=== PATIENT | female | born 1950 | race Hispanic/Latino ===

== ENCOUNTER 2022-06-03 23:54 | Inpatient (IN) | payer OTHER, MEDICARE ==
[2022-06-04] MEDS ORDERED: Ondansetron PF 4 MG/2 ML Vial ONE ×2 (00:07→15:04)
[2022-06-04] MEDS ORDERED: Morphine 4 MG/ML VIAL ONE (00:07)
[2022-06-04] MEDS ORDERED: Ketorolac Tromethamine 30 MG/ML VIAL ONE (00:07)
[2022-06-04] MEDS ORDERED: Ondansetron ODT 4 MG TAB PO PRN (01:07)
[2022-06-04] MEDS ORDERED: hydrALAZINE 20 MG/ML VIAL SLOW IVP PRN (01:07)
[2022-06-04] MEDS ORDERED: Dextrose 5% in Water 1,000 ML IV PRN (01:07)
[2022-06-04] MEDS ORDERED: Dextrose 50% Abboject 50 ML SYRINGE SLOW IVP PRN (01:07)
[2022-06-04] MEDS ORDERED: Ipratropium/Albuterol 3 ML NEB NEB PRN (01:07)
[2022-06-04] MEDS ORDERED: traMADol HCl 50 MG TAB PO PRN (01:13)
[2022-06-04] MEDS ORDERED: Sodium Chloride 0.9% 1,000 ML IV SCH (01:15)
[2022-06-04 01:43] LABS: #Lymphocytes 0.8 thou/uL (1.20-3.40); #Monocytes 0.5 thou/uL (0.11-0.59); %Basophils 0.5 % (0.0-1.0); %Eosinophils 0.5 % (0.0-10.0); %Lymphocytes 9.3 % (21.0-51.0); %Monocytes 5.8 % (0.0-10.0); %Neutrophils 83.9 % (42.0-75.0); Hemoglobin 11.4 g/dL (12.0-16.0); Mean Corpuscular HGB CONC 33.5 g/dL (32.0-36.0); Mean Corpuscular Hemoglobin 32.5 pg (27.0-31.0); Mean Platelet Volume 8.3 fL (7.4-10.4); Platelet Count 121 10x3/uL (130-400); RBC Distribution Width 11.7 % (11.5-14.5); White Blood Cell (WBC) Count 8.3 10x3/uL (4.8-10.8)
[2022-06-04 02:02] LABS: Phosphorus 2.6 mg/dL (2.3-4.7)
[2022-06-04 02:05] LABS: ALT (SGPT) 11 U/L (8-55); AST (SGOT) 20 U/L (5-34); Alkaline Phosphatase 108 U/L (40-110); Anion Gap 11 mmol/L (10-20); BUN (Urea Nitrogen) 23 mg/dL (9.8-20.1); Bilirubin, Total 0.2 mg/dL (0.2-1.2); Calc. Creatinine Clearance 0 mL/min (70-130); Calcium 8.7 mg/dL (7.8-10.44); Carbon Dioxide 25 mmol/L (23-31); Chloride 108 mmol/L (98-107); Estimated GFR 78; Globulin 2.2 g/dL (2.4-3.5); Glucose 123 mg/dL (83-110); Magnesium 2.3 mg/dL (1.6-2.6); Protein, Total 6.2 g/dL (5.8-8.1); Sodium 140 mmol/L (136-145)
[2022-06-04 03:51] VITALS: BMI 20.5
[2022-06-04] MEDS: Morphine 2 MG/ML VIAL SLOW IVP PRN ×3 (04:29→21:20)
[2022-06-04] MEDS: traMADol HCl 50 MG TAB PO SCH ×4 (06:03→23:59)
[2022-06-04] MEDS: Acetaminophen 500 MG TAB PO SCH ×4 (06:04→23:58)
[2022-06-04] MEDS: Ondansetron PF 4 MG/2 ML Vial IVP PRN ×2 (08:04→21:20)
[2022-06-04] MEDS: Senokot S 8.6-50 MG TAB PO SCH ×2 (08:08→21:21)
[2022-06-04] MEDS: Polyethylene Glycol 3350 17 GM Packet PO SCH (08:08)
[2022-06-04] MEDS ORDERED: Diazepam 5 MG TAB PO PRN (08:25)
[2022-06-04] MEDS ORDERED: Famotidine 20 MG TAB PO SCH (09:00)
[2022-06-04] MEDS: Sertraline 100 MG TAB PO SCH (11:56)
[2022-06-04] MEDS: Erythromycin Base 250 MG TAB PO SCH ×2 (11:56→16:40)
[2022-06-04] MEDS ORDERED: Scopolamine 1.5 mg/72 hour Patch ONE (13:21)
[2022-06-04] MEDS ORDERED: Neomycin-Polymyxin 1 ML AMP ONE (14:32)
[2022-06-04] MEDS ORDERED: fentaNYL PF 100 MCG/2 ML SYRINGE ONE (14:37)
[2022-06-04] MEDS ORDERED: Bupivacaine/Epinephrine 0.25% 30 ML VIAL ONE (14:38)
[2022-06-04] MEDS ORDERED: Clindamycin/D5W 900 mg/50 ml Premix Bag ONE (14:44)
[2022-06-04] MEDS ORDERED: Rocuronium Bromide 10 MG/ML (10ML VIAL) ONE (15:04)
[2022-06-04] MEDS ORDERED: NEOSTIGMINE 3 MG/3 ML SYR 3 MG/3 ML SYRINGE ONE (15:04)
[2022-06-04] MEDS ORDERED: PROPOFOL 200 MG/20 ML VIAL ONE (15:04)
[2022-06-04] MEDS ORDERED: GLYCOPYRROLATE/PF 0.2 MG/ML VIAL ONE (15:04)
[2022-06-04] MEDS ORDERED: Tranexamic Acid 1,000 MG/10 ML VIAL ONE (15:28)
[2022-06-04] MEDS ORDERED: TETANUS, DIPHTHERIA TOX,ADULT (TDVAX) 0.5 ML VIAL IM ONE (17:01)
[2022-06-04] MEDS ORDERED: Promethazine HCl 25 MG/ML VIAL IM PRN (17:03)
[2022-06-04] MEDS ORDERED: Ondansetron HCl/PF 4 MG/2 ML Vial IVP PRN (17:03)
[2022-06-04] MEDS ORDERED: Communication Order-Pharmacy FS SCH (17:15)
[2022-06-04] MEDS: Aspirin 81 mg Enteric Coated Tablet PO SCH (21:19)
[2022-06-04] MEDS: Clindamycin/D5W 900 MG in Premix Bag 1 BAG IVPB SCH (21:19)
[2022-06-05] MEDS: Clindamycin/D5W 900 MG in Premix Bag 1 BAG IVPB SCH (05:47)
[2022-06-05] MEDS: traMADol HCl 50 MG TAB PO SCH ×4 (05:48→23:24)
[2022-06-05] MEDS: Erythromycin Base 250 MG TAB PO SCH ×3 (05:48→15:50)
[2022-06-05] MEDS: Acetaminophen 500 MG TAB PO SCH ×4 (05:49→23:24)
[2022-06-05] MEDS: Rosuvastatin 5 MG TAB PO SCH (09:02)
[2022-06-05] MEDS: Sertraline 100 MG TAB PO SCH (09:02)
[2022-06-05] MEDS: Aspirin 81 mg Enteric Coated Tablet PO SCH ×2 (09:02→20:38)
[2022-06-05] MEDS: Tamoxifen 10 MG TAB PO SCH (09:02)
[2022-06-05] MEDS: Polyethylene Glycol 3350 17 GM Packet PO SCH (09:03)
[2022-06-05 09:20] LABS: #Monocytes 0.9 thou/uL (0.11-0.59); #Neutrophils 6.3 thou/uL (1.40-6.50); %Basophils 0.3 % (0.0-1.0); %Eosinophils 0.1 % (0.0-10.0); %Lymphocytes 12.1 % (21.0-51.0); %Monocytes 11.3 % (0.0-10.0); %Neutrophils 76.2 % (42.0-75.0); Hemoglobin 9.2 g/dL (12.0-16.0); Mean Corpuscular HGB CONC 32.6 g/dL (32.0-36.0); Mean Corpuscular Hemoglobin 32.2 pg (27.0-31.0); Mean Corpuscular Volume 98.8 fl (78.0-98.0); Mean Platelet Volume 9.1 fL (7.4-10.4); Platelet Count 132 10x3/uL (130-400); RBC Distribution Width 11.9 % (11.5-14.5); Red Blood Cell (RBC) Count 2.86 mill/uL (4.20-5.40); White Blood Cell (WBC) Count 8.2 10x3/uL (4.8-10.8)
[2022-06-05 09:55] LABS: Anion Gap 12 mmol/L (10-20); BUN (Urea Nitrogen) 24 mg/dL (9.8-20.1); Calc. Creatinine Clearance 53 mL/min (70-130); Calcium 7.3 mg/dL (7.8-10.44); Carbon Dioxide 22 mmol/L (23-31); Chloride 107 mmol/L (98-107); Estimated GFR 72; Glucose 88 mg/dL (83-110); Magnesium 2.1 mg/dL (1.6-2.6); Phosphorus 4.2 mg/dL (2.3-4.7); Potassium 4.1 mmol/L (3.5-5.1); Sodium 137 mmol/L (136-145)
[2022-06-05] MEDS: Senokot S 8.6-50 MG TAB PO SCH ×2 (11:09→20:40)
[2022-06-05] MEDS ORDERED: Meclizine HCl 12.5 MG TAB PO PRN (11:20)
[2022-06-05] MEDS: Ondansetron PF 4 MG/2 ML Vial IVP PRN (12:16)
[2022-06-05] MEDS ORDERED: Sodium Chloride 0.9% 1,000 ML IV SCH (18:45)
[2022-06-05] MEDS: Cyclobenzaprine 10 MG TAB PO PRN (20:42)
[2022-06-06] MEDS: Cyclobenzaprine 10 MG TAB PO PRN (04:17)
[2022-06-06] MEDS: Acetaminophen 500 MG TAB PO SCH ×4 (04:18→23:43)
[2022-06-06] MEDS: Erythromycin Base 250 MG TAB PO SCH ×3 (04:20→16:03)
[2022-06-06] MEDS: traMADol HCl 50 MG TAB PO SCH ×4 (06:02→23:38)
[2022-06-06 06:23] LABS: #Lymphocytes 0.7 thou/uL (1.20-3.40); #Monocytes 0.7 thou/uL (0.11-0.59); #Neutrophils 5.1 thou/uL (1.40-6.50); %Basophils 0.2 % (0.0-1.0); %Eosinophils 0.4 % (0.0-10.0); %Lymphocytes 11.1 % (21.0-51.0); %Monocytes 10.4 % (0.0-10.0); %Neutrophils 77.9 % (42.0-75.0); Hemoglobin 8.7 g/dL (12.0-16.0); Mean Corpuscular HGB CONC 32.2 g/dL (32.0-36.0); Mean Corpuscular Hemoglobin 31.9 pg (27.0-31.0); Mean Corpuscular Volume 98.9 fl (78.0-98.0); Mean Platelet Volume 8.7 fL (7.4-10.4); Platelet Count 121 10x3/uL (130-400); Red Blood Cell (RBC) Count 2.72 mill/uL (4.20-5.40); White Blood Cell (WBC) Count 6.6 10x3/uL (4.8-10.8)
[2022-06-06 06:45] LABS: Anion Gap 11 mmol/L (10-20); BUN (Urea Nitrogen) 17 mg/dL (9.8-20.1); Calc. Creatinine Clearance 68 mL/min (70-130); Calcium 7.1 mg/dL (7.8-10.44); Carbon Dioxide 24 mmol/L (23-31); Chloride 107 mmol/L (98-107); Estimated GFR 93; Glucose 87 mg/dL (83-110); Magnesium 2.2 mg/dL (1.6-2.6); Phosphorus 1.5 mg/dL (2.3-4.7); Potassium 3.6 mmol/L (3.5-5.1); Sodium 138 mmol/L (136-145)
[2022-06-06] MEDS: Tamoxifen 10 MG TAB PO SCH (08:31)
[2022-06-06] MEDS: Sertraline 100 MG TAB PO SCH (08:31)
[2022-06-06] MEDS: Aspirin 81 mg Enteric Coated Tablet PO SCH ×2 (08:31→21:31)
[2022-06-06] MEDS: Rosuvastatin 5 MG TAB PO SCH (08:32)
[2022-06-06] MEDS: Polyethylene Glycol 3350 17 GM Packet PO SCH (08:32)
[2022-06-06] MEDS: Senokot S 8.6-50 MG TAB PO SCH ×2 (08:33→21:31)
[2022-06-06] MEDS ORDERED: Potassium Phosphate 30 MMOL in Sodium Chloride 0.9% 500 ML IVPB SCH (09:00)
[2022-06-07] MEDS: traMADol HCl 50 MG TAB PO SCH ×2 (06:05→11:45)
[2022-06-07] MEDS: Acetaminophen 500 MG TAB PO SCH ×2 (06:06→11:45)
[2022-06-07] MEDS: Erythromycin Base 250 MG TAB PO SCH ×2 (06:06→10:41)
[2022-06-07] MEDS: Sertraline 100 MG TAB PO SCH (08:43)
[2022-06-07] MEDS: Aspirin 81 mg Enteric Coated Tablet PO SCH (08:43)
[2022-06-07] MEDS: Polyethylene Glycol 3350 17 GM Packet PO SCH (08:44)
[2022-06-07] MEDS: Rosuvastatin 5 MG TAB PO SCH (08:44)
[2022-06-07] MEDS: Tamoxifen 10 MG TAB PO SCH (08:44)
[2022-06-07] MEDS: Senokot S 8.6-50 MG TAB PO SCH (08:45)
[2022-06-07] MEDS ORDERED: Ferrous Sulfate 325 MG TAB PO SCH (09:00)
[2022-06-07] MEDS ORDERED: Ascorbic Acid 500 mg Chewable Tablet PO SCH (09:00)
[2022-06-07 12:23] VITALS: BP 144/56; TEMP 97.8
== END 2022-06-07 14:45 | disposition home or self-care (01) | DRG 493 ==
LOC: ERS 23:54 → SURG A 06-04 01:13 → OBSVTOIN 06-04 03:36
PROVIDERS: ADMIT Surgery; ATTEND Surgery
PROC: 0PSD04Z Reposition Left Humeral Head with Internal Fixation Device, Open Approach (ICD-10-PCS; principal; 2022-06-04)
DX: S42.262A Displaced fracture of lesser tuberosity of left humerus, initial encounter for closed fracture (principal); D62 Acute posthemorrhagic anemia; W01.0XXA Fall on same level from slipping, tripping and stumbling without subsequent striking against object, initial encounter; M81.0 Age-related osteoporosis without current pathological fracture; K31.84 Gastroparesis; E88.81 Metabolic syndrome and other insulin resistance; S42.252A Displaced fracture of greater tuberosity of left humerus, initial encounter for closed fracture; S42.292A Other displaced fracture of upper end of left humerus, initial encounter for closed fracture; E83.39 Other disorders of phosphorus metabolism; T50.3X5A Adverse effect of electrolytic, caloric and water-balance agents, initial encounter; Z90.710 Acquired absence of both cervix and uterus; Z98.51 Tubal ligation status; Z88.5 Allergy status to narcotic agent; Z79.899 Other long term (current) drug therapy
CPT/HCPCS: 36415; 71045; 80048; 80053; 83735; 84100; 84484; 85025; 93005; 96374; 96375; C1713; G0390; J1885; J2270; J2272; J2405; J2704; J3490; J7030; J7050